=== PATIENT | female | born 1990 | race Caucasian/White ===

== ENCOUNTER 2025-02-14 18:39 | Emergency (ER) | payer OTHER, SELFPAY ==
[2025-02-14 18:44] VITALS: BP 133/87
[2025-02-14 18:50] VITALS: BMI 25.8
[2025-02-14 19:39] LABS: % Basophils 0.9 % (0-2); % Eosinophils 0.9 % (0-6); % Immature Granulocytes 0.1 % (0-0.5); % Lymphocytes 30.2 % (20.5-51.1); % Monocytes 7.8 % (1.7-9.3); % Neutrophils 60.1 % (42.2-75.2); Absolute Basophils 0.1 10^3/uL (0-0.2); Absolute Eosinophils 0.1 10^3/uL (0-0.7); Absolute Lymphocytes 2.5 10^3/uL (1.2-3.4); Absolute Monocytes 0.6 10^3/uL (0.1-0.6); Absolute Neutrophils 4.9 10^3/uL (1.4-6.5); Hematocrit 41.8 % (37.0-47.0); Hemoglobin 14.9 g/dL (12.0-16.0); Mean Corp Hgb Conc. 35.6 g/dL (33.0-37.0); Mean Corpuscular Hgb 31.2 pg (27.0-31.0); Mean Corpuscular Volume 87.6 fL (81.0-99.0); Mean Platelet Volume 10.6 fL (7.4-10.4); Nucleated Red Blood Cells % 0 %; Platelet Count 285 10^3/uL (130-400); Red Blood Cell Count 4.77 10^6/uL (4.20-5.40); Red Cell Dist. Width 11.9 % (11.5-14.5); White Blood Cell Count 8.2 10^3/uL (4.8-10.8)
--- NOTE | 2025-02-14 19:43 | ED.GENMED ---
History of Present Illness
General
Chief Complaint: Chest Pain
Source: patient and family (Mother)
Exam Limitations: none
Time Seen by Provider: 02/14/25 19:28
Nursing documentation reviewed up to this point in time: agreed with
History of Present Illness
History of Present Illness:
34-year-old female with a past medical history of cerebral palsy, hypertension who presents to the emergency department with her mother for evaluation of hypertension and chest pains. Patient reports that her primary reason for presenting to the
hospital today was due to hypertension noted to be increasing during a telehealth appointment with her primary doctor today�patient says that her blood pressure peaked at over 200 systolic and so she was referred to the ER to be evaluated. She is
on carvedilol 12.5 mg twice daily as well as lisinopril 2.5 mg daily and reports compliance without missed doses and no recent adjustments. As far symptoms: She reports that she has been having chest pains for the past week�she has chronic pains
related to her left rib ongoing for over a year but over the past week has been complaining of a constant tightness in the center of her chest. She reports some mild shortness of breath. She denies any cough fever, abdominal pain, swelling or pain
in her legs. She did have some numbness and tingling in the left arm today associated with her chest pain. She denies having had similar symptoms in the past. Primary care physician is Dr. Benito Reyes through [facility] primary care.
Review of Systems
Review of Systems
All Other Systems: ROS reviewed and negative except as documented in HPI and ROS
Constitutional: Denies fever or chills
Respiratory: Denies cough or trouble breathing
Cardiac: Reports chest pain and diaphoresis (Patient does report sweating although she has a history of hyperhidrosis); Denies palpitations
ABD/GI: Denies abdominal pain or vomiting
: Denies flank pain
Musculoskeletal: Denies edema, neck pain or back pain
Neurological: Denies headache
Phy Exam
Physical Exam
Physical Exam:
General: Awake, alert, oriented x3; no acute distress
Head: Normocephalic, atraumatic
Eyes: Conjunctiva normal
Throat: Airway intact, handling secretions
Neck: Trachea midline, no JVD
Lungs: Clear to auscultation bilaterally, no wheezing, rales, rhonchi
Heart: Regular rate and rhythm, no murmurs, gallops, or rubs; she does have some left lower rib tenderness but no bruising or ecchymosis
Abd: Soft, non distended, nontender
Skin: no rash noted on the chest
Extremities: No edema in extremities, no calf tenderness, equal pulses in all extremities; she does leg braces in place bilaterally
Scores
Heart Failure Risk
Heart Failure Risk Score: Not Applicable
Heart Score for Chest Pain Patients
STEMI patient?: Not applicable
Withdrawal Assessment of Alcohol
Withdrawal Assessment Completed?: Not applicable
Course
Orders/Labs/Results
Orders:
Orders
02/14/25 18:55
EKG [Electrocardiogram (*1)] Urgent
Reason for Study: Chest Pain
EKG- Treatment ONCE
02/14/25 19:27
Complete Blood Count/With Diff Urgent
02/14/25 19:29
Test Result ONCE
02/14/25 19:30
CR Chest - 2 Views Urgent
Comment:
Reason For Exam: chest pain
02/14/25 19:55
Basic Metabolic Panel Urgent
D-Dimer Urgent
Troponin I Urgent
02/14/25 20:46
HCG, Serum Qualitative Screen Urgent
Comment: ADD ON
Uqhzd-Lglh-Ddryazn Urgent
02/14/25 21:01
CT Chest PE Study Urgent
Comment:
Reason For Exam: chest pain, +dimer
Abnormal Lab Results
02/14/25 02/14/25
19:27 19:55
MCH 31.2 H pg
(27.0-31.0)
MPV 10.6 H fL
(7.4-10.4)
D-Dimer 0.51 H ug/mlFEU
(0.00-0.50)
Chloride 109 H mmol/L
(98-107)
02/14/25 19:27
02/14/25 19:55
Vital Signs
Initial and Last Documented VS:
Initial Vital Signs
Temp Pulse Resp BP Pulse Ox
36.6 C 82 15 133/87 99
02/14/25 18:44 02/14/25 18:44 02/14/25 18:44 02/14/25 18:44 02/14/25 18:44
Last Documented Vital Signs
Temp Pulse Resp BP Pulse Ox
36.6 C 76 18 120/67 99
02/14/25 18:44 02/14/25 22:21 02/14/25 22:21 02/14/25 22:20 02/14/25 18:44
MDM/Problems Addressed
Differential Diagnosis Includes:
Atypical chest pain is wide differential includes but not limited to: Costochondritis, pneumothorax, pneumonia, GERD, angina/ACS, PE, aortic dissection considered less likely based on clinical appearance
MDM/Problems Addressed:
34-year-old female with past medical history as noted presents for evaluation of atypical chest pains over the past week, primary reason for referral today was severe hypertension. Her blood pressure has normalized her blood pressure is 133/87 in
triage here. EKG shows no STEMI. Physical exam as above. Will place an IV send labs including a CBC and a CMP, hCG, troponin, D-dimer. Will check chest x-ray. Monitor on telemetry. Serial blood pressure. Will discuss with patient's primary
care physician.
Labs reviewed: CBC and CMP no clinically significant abnormalities. Troponin undetectable and with consistent symptoms for weakness is sufficient to rule out acute MS and very low suspicion for acute coronary syndrome. Chest x-ray reviewed by me
shows no acute abnormality. Patient's D-dimer was positive�will send for CTA to rule out PE. Blood pressure remains normal we will continue to monitor.
CTA shows no PE. She is a groundglass opacity left upper lobe which is known to the patient and she has outpatient follow-up planned. She is feeling well here on clinical reassessment, her vital signs are normal including blood pressure 120/67. I
discussed the case with patient's primary care physician�with blood pressure normalized today we will follow-up with patient in the office. Patient comfortable with this plan. Provided copy of results for outpatient follow-up. All questions
answered.
Chronic conditions affecting care:
Hypertension
*Radiology
Radiology exam reviewed: preliminary read by ED provider
*Pulse Oximetry
Patient hypoxic: no (99%)
*EKG
Interpreted by ED Provider?: Yes
Comparison EKG: no comparison EKG present
Heart Rate: 83
Rate: normal
Rhythm: sinus
[place]: normal axis
Interval: normal interval
QRS Pattern: normal QRS
Ischemia: other (Septal infarct age indeterminant)
*Critical Care Note
Total Time (30-74mins, 75-104mins- exclusive of procedures): Not Applicable
Data Reviewed
Source: patient and family
Patient Management
Discussion with other providers: PCP (Discussed with primary care physician)
ED Attending Note
-
Portions of this chart may have been created with voice recognition software.� Occasional wrong word or��sound alike� substitutions may have occurred due to the inherent limitations of voice recognition software.
Discharge Plan
Departure
Patient Disposition: Home (Routine Discharge)
Date of Disposition: 02/14/25
Time of Disposition: 22:39
Patient with high blood pressure during this ER visit?: No
Discharge Problem:
Chest pain
Instructions: Chest Pain PCP Follow Up
Referrals:
BENITO REYES DO [Family Provider, Family Practice] - Follow up in 5-7 days
Activity Restrictions/Additional Instructions:
Thank you for visiting the Emergency Department at [facility].
1. Please schedule a follow up appointment as directed. Call first thing tomorrow morning to make an appointment.
2. If indicated, please take your medications as instructed and indicated on discharge paperwork.
3. If any of your symptoms do not improve, or persist, or become more severe within 6-12 hours, please return to the emergency department for further care.
4. Please return to the emergency department if you develop a headache, neck pain/stiffness, fever greater than 100.4F, chest pain, shortness of breath, persistent nausea, vomiting, slurred speech, difficulty walking, numbness/tingling, weakness,
signs of infection or any other symptoms that are worrisome to you.
Please call [phone] if you have any questions.
Interventions
Interventions:
*Risk Screen - Suicide Last Done: 02/14/25 18:51
*General Assessment Last Done: 02/14/25 18:51
*Neglect/Abuse Screening Last Done: 02/14/25 18:51
*ED- Fall Risk Assessment Last Done: 02/14/25 18:51
*ED COVID-19 Vaccine History Last Done: 02/14/25 18:51
ED- Cardiac Assessment Last Done: 02/14/25 19:46
Discharge Date and Time
Print Language: IRISH
[2025-02-14 20:37] LABS: Blood Urea Nitrogen 13 mg/dl (7-17); Calcium 9.4 mg/dl (8.4-10.2); Carbon Dioxide 23 mmol/L (22-30); Chloride 109 mmol/L (98-107); Estimated Creatinine Clearance 87 ml/min; Glucose 84 mg/dl (70-99); Sodium 138 mmol/L (135-145); eGFR > 60.00
[2025-02-14 20:44] LABS: Troponin I < 0.012 ng/ml
[2025-02-14 20:54] LABS: D-Dimer 0.51 ug/mlFEU (0.00-0.50)
[2025-02-14 21:07] LABS: HCG, Serum Qualitative Screen Negative
[2025-02-14 21:14] LABS: ALT (SGPT) 13 U/L (0-35); AST (SGOT) 19 U/L (14-36); Albumin 3.9 g/dl (3.5-5.0); Alkaline Phosphatase 40 U/L (38-126); Direct Bilirubin 0.3 mg/dl (0.0-0.4); Total Bilirubin 1.2 mg/dl (0.2-1.3); Total Protein 6.4 g/dl (6.3-8.2)
[2025-02-14 22:20] VITALS: BP 120/67
[2025-02-14 22:58] VITALS: BP 128/74
== END 2025-02-14 23:00 | disposition home or self-care (01) ==
LOC: EMR 18:39
PROVIDERS: Emergency Medicine; EMERGENCY PHYSICIAN Emergency Medicine; FAMILY PHYSICIAN Family Medicine
DX: R07.9 Chest pain, unspecified (principal); G89.29 Other chronic pain; I10 Essential (primary) hypertension; G80.9 Cerebral palsy, unspecified; Z79.899 Other long term (current) drug therapy
CPT/HCPCS: 99285; 71046; 71275; 80048; 80076; 84484; 84703; 85025; 85379; 93005; Q9967